=== PATIENT | female | born 1965 | race Asian ===

== ENCOUNTER 2020-06-19 12:38 | Outpatient (CLI) | payer OTHER ==
--- NOTE | 2020-06-20 09:18 | Mammography Report ---
BILATERAL DIGITAL SCREENING MAMMOGRAM: 06/19/2020 CLINICAL: Routine screening. Comparison is made to exams dated: 07/28/2018 mammogram, 07/27/2017 mammogram, 07/20/2016 mammogram - [facility], and 06/30/2015 mammogram - [facility]. The tissue of corine th breasts is heterogeneously dense. This may lower the sensitivity of mammography. There are benign calcifications in the right breast. There also are biopsy clips in the right breast . No significant masses, calcifications, or other findings are seen in either breast. There has been no significant interval change. IMPRESSION: BENIGN There is no mammographic evidence of malignancy. A 1 year screening mammogram is recommended. This exam was interpreted at Station ID: [id number]. NOTE: For mammograms, a report in lay terms will be sent to the patient. Approximately 15% of breast malignancies will not be visualized mammographically. In the management of a palpable breast mass, a negative mammogram must not discourage biopsy of a clinically suspicious lesion. Electronically Signed By: Kvng brown/nayana:06/19/2020 17:52:39 ACR BI-RADS Category 2: Benign Finding(s) 3342F PARENCHYMAL PATTERN: (D) - The breast(s) demonstrate(s) heterogeneously dense fibroglandular francisco dorman. BI-RADS CATEGORY: (2) - 2 RECOMMENDATION: (ANNUAL) - Recommend routine annual screening mammography. [id number] 1 year screening LATERALITY: (B)
== END 2020-06-19 12:39 | disposition home or self-care (01) ==
LOC: DI.N 12:38
PROVIDERS: ATTEND Obstetrics & Gynecology
DX: Z12.31 Encounter for screening mammogram for malignant neoplasm of breast (principal)
CPT/HCPCS: 77067

== ENCOUNTER 2023-05-23 21:28 | Emergency (ER) | payer OTHER ==
[2023-05-23 21:36] VITALS: BP 140/78; O2SAT 96
[2023-05-23] MEDS ORDERED: NIRMATRELVIR/RITONAVIR PREPACK PO STA (21:41)
--- NOTE | 2023-05-23 21:47 | ED Physician Documentation ---
History of Present Illness - Stated complaint Stated Complaint: C+, FEVER, CHEST PX - Chief complaint Chief Complaint: General - History obtained from History obtained from: Patient - Additonal information Additional information: 58-year-old female presents after a positive COVID test at home. She has a mild cough, no shortness of breath or chest pain, no nausea vomiting or diarrhea. She states that she has a history of diabetes and a family member Told her to get paxlovid because it was helpful for them. The patient would like this prescription today. She otherwise is feeling okay, she is tolerating p.o., denies any dyspnea or chest pain, no vomiting or diarrhea. 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 - Present Medications Home Medications: Ambulatory Orders Medication Instructions Recorded Confirmed Benzonatate [Tessalon Perle] 100 - 200 mg PO TID PRN #20 capsule 10/15/14 Oseltamivir [Tamiflu] 75 mg PO BID #10 capsule 10/15/14 - Allergies Allergies/Adverse Reactions: Allergies Allergy/AdvReac Type Severity Reaction Status Date / Time No Known Drug Allergies Allergy Verified 05/23/23 21:31 - Social History Does the pt smoke?: No Smoking Status: Never smoker Does the pt drink ETOH?: No Does the pt have substance abuse?: No PD ED PE NORMAL - Vitals Vital signs reviewed: Yes - General General: Alert and oriented X 3, No acute distress, Well developed/nourished - HEENT HEENT: Atraumatic, Moist mucous membranes, Pharynx benign - Neck Neck: Supple, no meningeal sign, No JVD - Cardiac Cardiac: RRR, No murmur - Respiratory Respiratory: No respiratory distress, Clear bilaterally - Neuro Neuro: Alert and oriented X 3 Eye Opening: Spontaneous Motor: Obeys Commands Verbal: Oriented GCS Score: 15 Results - Vitals Vitals: Vital Signs - 24 hr 05/23/23 21:32 Temperature 37.9 C Heart Rate 90 Respiratory 16 Rate Blood Pressure 140/78 H O2 Saturation 96 Oxygen O2 Source Room air PD Medical Decision Making - ED course Complexity details: d/w patient, d/w family ED course: 58-year-old female with history of type 2 diabetes presents with a positive home COVID test which the patient brought with her. She has mild symptoms, no respiratory distress. Her vital signs were reviewed here and are stable, she does have a temperature of 37.9 but is oxygenating well on room air. The patient is here primarily to get a prescription for Paxlovid. She has no known history of renal disease therefore I have prescribed full dose Paxlovid for the patient and she was dispensed this here from the ER. She was advised on continued supportive measures at home as well as return precautions if new or worsening symptoms such as chest shortness of breath, chest pain, dehydration or other new concerns. I reviewed routine COVID instructions with her as well as r ecommendations for self isolation. Departure - Departure Disposition: Home, Self Care Clinical Impression: COVID-19 Condition: Good Instructions: ED Viral Syndrome, COVID-19 [facility] Comments: My COVID instructions please continue supportive care for COVID infection including Tylenol as needed for fever or discomfort, staying well-hydrated, and getting plenty of rest. Please stay home and self isolate until your symptoms have resolved. We have started you on Paxlovid which is a medication that can help reduce the severity of COVID. Please take as prescribed. If you develop worsening symptoms such as shortness of breath, chest pain, or new concerns, return to the ER. Forms: PCP List
== END 2023-05-23 22:02 | disposition home or self-care (01) ==
LOC: ED 21:28
DX: U07.1 COVID-19 (principal); E11.9 Type 2 diabetes mellitus without complications
CPT/HCPCS: 99282; 99283; J3490